=== PATIENT | female | born 2000 | race Caucasian/White ===

== ENCOUNTER → 2020-08-20 | Outpatient (CLI) | payer BC ==
[~2020-08-20] MED LIST: MIRALAX PA17 GM/Dose PO; OMNICEF 300MG300 MG PO; TORADOL 10MG TA10 MG PO; ZOFRAN 4MG T4 MG/TAB PO
== END ==
LOC: COL.RAD
DX: R30.0 Dysuria (principal); R31.9 Hematuria, unspecified; Z87.442 Personal history of urinary calculi

== ENCOUNTER 2021-04-03 04:22 | Emergency (ER) | payer BC ==
[2021-04-03 04:31] VITALS: TEMP 97.6
[2021-04-03 04:43] LABS: COLLECTION METHOD CLEAN CATCH
[2021-04-03 04:49] LABS: PH 6 (5-8); SQUAMOUS EPITHELIAL 0-2 /hpf; URINE APPEARANCE Clear; URINE BACTERIA None Seen /hpf; URINE BILIRUBIN Negative (NEGATIVE); URINE BLOOD 1+ (NEGATIVE); URINE COLOR Straw; URINE GLUCOSE Negative (NEGATIVE); URINE KETONE Negative (NEGATIVE); URINE LEUKOCYTE ESTERASE Negative (NEGATIVE); URINE NITRATE Negative (NEGATIVE); URINE PROTEIN(semi-quant) Negative (NEGATIVE); URINE RBC 0-2 /hpf; URINE UROBILINOGEN Negative (NEGATIVE)
[2021-04-03 04:54] LABS: BASO % 0.2 % (0.0-2.0); EOS # 0.1 K/mm3 (0.0-0.7); EOS % 1.6 % (0-4.0); GRAN # 5.2 K/mm3 (1.4-6.5); GRAN % 58.3 % (42.2-75.2); HEMOGLOBIN 12.2 g/dl (12.0-15.0); LYMPH # 2.8 K/mm3 (1.2-3.4); LYMPH % 31.5 % (20.0-51.0); MEAN CELL VOLUME 88 fl (80.0-95.0); MEAN CORPUSCULAR HEMOGLOBIN 30 pg (26.0-32.0); MEAN CORPUSCULAR HGB CONC 33 g/dl (33.0-37.0); MEAN PLATELET VOLUME 8.6 fl (7.4-10.4); MONO # 0.7 K/mm3 (0.1-0.6); MONO % 8.1 % (1.7-9.3); PLATELET COUNT 369 K/mm3 (130-400); RED BLOOD COUNT 4.14 M/mm3 (4.10-5.30); REDCELL DISTRIBUTION WIDTH-CV 12.2 % (11.5-14.5)
[2021-04-03 04:55] LABS: HEMATOCRIT 36.5 % (35.0-45.0)
[2021-04-03 05:29] LABS: ALBUMIN 3.5 gm/dL (3.5-5.0); BILIRUBIN,TOTAL 0.5 mg/dL (0.2-1.2); CALCIUM 9.2 mg/dL (8.4-10.2); CREATININE, serum 0.82 mg/dL (0.57-1.11); TOTAL PROTEIN 7.2 gm/dL (6.2-8.1)
[2021-04-03] MEDS ORDERED: TORADOL 10MG TA10 MG PO (05:51)
[2021-04-03] MEDS ORDERED: MIRALAX PA17 GM/Dose PO (05:51)
[2021-04-03 06:01] VITALS: BP 123/81; PULSE 77
== END 2021-04-03 06:01 | disposition home or self-care (01) ==
LOC: COL.ER 04:22
PROVIDERS: Emergency Medicine
DX: K59.00 Constipation, unspecified (principal); R31.29 Other microscopic hematuria; Z87.442 Personal history of urinary calculi; Z32.02 Encounter for pregnancy test, result negative; Z98.890 Other specified postprocedural states
CPT/HCPCS: J1885; J2270; J2405; J7030; Q9967

== ENCOUNTER 2021-04-05 15:50 | Emergency (ER) | payer BC ==
[~2021-04-05] VITALS: Ht 172.7 cm; Wt 61.4 kg
[~2021-04-05 15:50] MED LIST changes: -OMNICEF 300MG300 MG PO; -ZOFRAN 4MG T4 MG/TAB PO
[2021-04-05 16:21] VITALS: TEMP 98.4
[2021-04-05 16:40] LABS: COLLECTION METHOD CLEAN CATCH
[2021-04-05 16:50] LABS: MUCOUS Present /lpf; PH 5 (5-8); SQUAMOUS EPITHELIAL 20-50 /hpf; URINE APPEARANCE Hazy; URINE BACTERIA None Seen /hpf; URINE BILIRUBIN Negative (NEGATIVE); URINE BLOOD 2+ (NEGATIVE); URINE COLOR Amber; URINE GLUCOSE Negative (NEGATIVE); URINE KETONE 1+ (NEGATIVE); URINE LEUKOCYTE ESTERASE 2+ (NEGATIVE); URINE NITRATE Negative (NEGATIVE); URINE PROTEIN(semi-quant) Negative (NEGATIVE)
[2021-04-05 17:03] LABS: BASO % 0.3 % (0.0-2.0); EOS % 0.5 % (0-4.0); GRAN # 6.2 K/mm3 (1.4-6.5); GRAN % 78.9 % (42.2-75.2); HEMOGLOBIN 11.7 g/dl (12.0-15.0); LYMPH # 1.1 K/mm3 (1.2-3.4); LYMPH % 13.6 % (20.0-51.0); MEAN CELL VOLUME 87 fl (80.0-95.0); MEAN CORPUSCULAR HEMOGLOBIN 29 pg (26.0-32.0); MEAN CORPUSCULAR HGB CONC 34 g/dl (33.0-37.0); MEAN PLATELET VOLUME 8.7 fl (7.4-10.4); MONO # 0.5 K/mm3 (0.1-0.6); MONO % 6.4 % (1.7-9.3); PLATELET COUNT 341 K/mm3 (130-400); RED BLOOD COUNT 3.99 M/mm3 (4.10-5.30)
[2021-04-05 17:08] LABS: HEMATOCRIT 34.8 % (35.0-45.0)
[2021-04-05 17:22] LABS: ALBUMIN 3.3 gm/dL (3.5-5.0); BILIRUBIN,TOTAL 0.4 mg/dL (0.2-1.2); C-REACTIVE PROTEIN 5.46 mg/dL (0.00-0.50); CALCIUM 9.2 mg/dL (8.4-10.2); CREATININE, serum 0.74 mg/dL (0.57-1.11); POTASSIUM 4.1 mmol/L (3.5-4.5); TOTAL PROTEIN 7.2 gm/dL (6.2-8.1)
[2021-04-05] MEDS ORDERED: OMNICEF 300MG300 MG PO (17:34)
[2021-04-05] MEDS ORDERED: ZOFRAN 4MG T4 MG/TAB PO (17:35)
[2021-04-05 18:43] VITALS: BP 118/72; PULSE 79
== END 2021-04-05 18:45 | disposition home or self-care (01) ==
LOC: COL.ER 15:50
PROVIDERS: Nurse Practitioner Primary Care
DX: N12 Tubulo-interstitial nephritis, not specified as acute or chronic (principal); Z87.442 Personal history of urinary calculi; Z98.890 Other specified postprocedural states; Z32.02 Encounter for pregnancy test, result negative
CPT/HCPCS: J0696; J1885; J2405; J7030

== ENCOUNTER 2024-03-26 23:30 | Inpatient (IN) | payer BC ==
[~2024-03-26] VITALS: Ht 172.7 cm; Wt 76.4 kg
[~2024-03-26 23:30] MED LIST changes: +OMNICEF 300MG300 MG PO; +ZOFRAN 4MG T4 MG/TAB PO
--- NOTE | 2024-03-26 23:40 | NUR ---
PATIENT AMBULATORY TO UNIT WITH SIGNIFICANT OTHER. PATIENT STATES SROM AT 2240 CLEAR FLUID. CONTRACTIONS STARTED AROUND 2310 EVERY 3 MINUTES. DENIES VAGINAL BLEEDING. SVE NOTED.
[2024-03-26] MEDS ORDERED: LR 1,000 ML IV PRN (23:45)
[2024-03-27] VITALS (55 sets, daily range): BP systolic 96–133; BP diastolic 51–74; PULSE 66–122; TEMP 97.7–98.4
[2024-03-27] MEDS ORDERED: LR & Oxytocin 500 ML IV SCH (00:30)
[2024-03-27] MEDS ORDERED: LR 1,000 ML IV PRN (00:30)
[2024-03-27] MEDS ORDERED: LR 1,000 ML IV SCH (00:30)
[2024-03-27 00:33] LABS: BASO % 0.1 % (0.0-2.0); EOS # 0.1 K/mm3 (0.0-0.7); EOS % 0.8 % (0.0-4.0); GRAN # 10.5 K/mm3 (1.4-6.5); GRAN % 74.8 % (42.2-75.2); HEMATOCRIT 33.5 % (37.0-47.0); HEMOGLOBIN 11.4 g/dl (12.5-16.0); LYMPH # 2.3 K/mm3 (1.2-3.4); LYMPH % 16.7 % (20.0-51.0); MEAN CELL VOLUME 87 fl (80.0-100.0); MEAN CORPUSCULAR HEMOGLOBIN 30 pg (27-31); MEAN CORPUSCULAR HGB CONC 34 g/dl (33.0-37.0); MEAN PLATELET VOLUME 10.3 fl (7.4-10.4); MONO % 6.9 % (1.7-9.3); PLATELET COUNT 227 K/mm3 (130-400); RED BLOOD COUNT 3.87 M/mm3 (4.10-5.30); REDCELL DISTRIBUTION WIDTH-CV 12.7 % (11.5-14.5)
[2024-03-27] MEDS ORDERED: ROPivacaine PF 0.2% 200 ML IV ONE (01:02)
[2024-03-27] MEDS ORDERED: Naloxone 0.4 MG/ML VIAL IV PRN ×2 (01:30→13:15)
[2024-03-27] MEDS ORDERED: diphenhydrAMINE 25 MG CAP PO PRN (01:30)
[2024-03-27] MEDS ORDERED: diphenhydrAMINE 50 MG/ML 1 ML VIAL IV PRN (01:30)
[2024-03-27] MEDS ORDERED: Ondansetron 4 MG/2 ML VIAL IV PRN (01:30)
[2024-03-27] MEDS ORDERED: ePHEDrine 50 MG/10 ML VIAL IV PRN (01:30)
--- NOTE | 2024-03-27 01:44 | NUR ---
0045- DAMIÁN LAL NOTIFIED OF PATIENT REQUESTING EPIDURAL. FLUID BOLUS STARTED PER PROTOCOL. 0109- PATIENT SITTING ON EDGE OF BED. DAMIÁN LAL AT BEDSIDE EXPLAINING PROCEDURE. PULSE OX APPLIED. DIFFICULTY TRACING HEART RATE DUE TO MATERNAL POSITIONING. 0113- SINGLE SHOT ADMINISTERED BY CLINIC LPN. 0120- PATIENT TOLERATED PROCEDURE WELL AND REPOSITIONED. PLAN OF CARE EXPLAINED TO PATIENT AND SPOUSE. QUESTIONS INVITED AND ANSWERED.
[2024-03-27] MEDS ORDERED: Acetaminophen 500 MG TAB PO PRN (04:30)
--- NOTE | 2024-03-27 07:45 | NUR ---
[facility] RECURRENT EARLY DECELERATIONS ON EFM, THIS RN RAISES PT HEAD OF BED, ADMINISTERS DOSE OF EPHEDRINE DUE TO LOW PT BLOOD PRESSURE, AND STARTS FLUID BOLUS.
[2024-03-27] MEDS ORDERED: Phenylephrine/Mineral Oil/Petrolatum 57 GM TUBE RC PRN (13:15)
[2024-03-27] MEDS ORDERED: Acetaminophen 500 MG TAB PO SCH (13:15)
[2024-03-27] MEDS ORDERED: Tdap Vaccine 0.5 ML SYRINGE IM SCH (13:15)
[2024-03-27] MEDS ORDERED: Loratadine 10 MG TAB PO PRN (13:15)
[2024-03-27] MEDS ORDERED: Mag/Al Hydrox/Simeth Susp 30 ML CUP PO PRN (13:15)
[2024-03-27] MEDS ORDERED: Ibuprofen 800 MG TAB PO SCH (13:15)
[2024-03-27] MEDS ORDERED: Witch Hazel 50% Pads Bulk TUB TP PRN (13:15)
[2024-03-27] MEDS ORDERED: Magnes Hydrox (MOM) 80 MG/ML 30 ML CUP PO PRN (13:15)
[2024-03-27] MEDS ORDERED: Measles/Mumps/Rubella Virus Vaccine Live w Diluent 0.5 ML VIAL SQ SCH (13:15)
--- NOTE | 2024-03-27 13:23 | NUR ---
1145 SVE 10/100/+1 PER THIS RN. , CHARGE NURSE, AND NURSERY NURSE NOTIFIED OF PT COMPLETE SVE. ROOM SET FOR DELIVERY, PT EDUCATED ON PUSHING. PT SPOUSE AND PT MOTHER SUPPORTIVE AT BEDSIDE. 1158 PT BEGINS TO PUSH. PT VS STABLE, EFM CAT 1, MODERATE AMOUNT OF BLOODY SHOW, PT AWAKE AND ALERT X3. 1218 AT PT BEDSIDE, CHARGE NURSE AND NURSERY NURSE AT BEDSIDE. PT VS STABLE, BASELINE 140'S, MODERATE VARIABILITY, RECURRENT LATE DECELERATIONS NOT PROLONGED. PT TOLERATING PUSHING. PT SPOUSE AND PT MOTHER SUPPORTIVE AT BEDSIDE. 1227 OF VIABLE FEMALE INFANT PER . DRIED AND PLACED ON MATERNAL CHEST, CORD CLAMPED AND CUT BY FATHER OF BABY/PT SPOUSE. INFANT CARE ASSUMED OVER TO NURSERY NURSE. 1232 OF PLACENTA, VAGINAL AND LEFT LABIAL TEAR REPAIR BEGUN PER . PT VS STABLE, FUNDUS FIRM DEVIATED TO THE RIGHT PER ASSESSMENT, SMALL AMOUNT OF LOCHIA, CLOT EXPELLED WITH SCANT LOCHIA AFTER. PT AWAKE AND ALERT X3, DENIES PAIN, NAUSEA, AND DIZZINESS. 1245 PT ROOM CLEANED AFTER DELIVERY, SPOUSE SUPPORTIVE AT BEDSIDE. PT VS STABLE, FUNDUS FIRM AT UMBILICUS DEVIATED TO THE RIGHT, SCANT LOCHIA, NO CLOTS, AWAKE AND ALERT X3. PT DENIES PAIN AT THIS TIME. INFANT ON MATERNAL CHEST.
[2024-03-27] MEDS ORDERED: Sennosides/Docusate 8.6-50 MG TAB PO SCH (17:00)
[2024-03-27] MEDS ORDERED: traZODone 50 MG TAB PO PRN (21:00)
[2024-03-28 00:30] VITALS: BP 106/57; PULSE 68; TEMP 98
[2024-03-28 04:00] VITALS: BP 105/61; PULSE 70; TEMP 97.8
[2024-03-28 07:00] VITALS: BP 108/60; PULSE 67; TEMP 98.2
[2024-03-28] MEDS ORDERED: IBU800 M1 PO (08:46)
--- NOTE | 2024-03-28 09:47 | NUR ---
Initial visit; Mom (Indisposed), Dad holding baby girl. Systems Analyst offered congratulations and God's blessings to Dad and Mom. Systems Analyst thanked family for choosing [facility].
== END 2024-03-28 14:33 | disposition home or self-care (01) | DRG 807 ==
LOC: LDRO 23:30 → LDR 03-27 00:19 → OB 03-27 16:20
PROVIDERS: Obstetrics & Gynecology; ADMIT Student in an Organized Health Care Education/Training Program
PROC: 10E0XZZ Delivery of Products of Conception, External Approach (ICD-10-PCS; principal; 2024-03-27)
PROC: 0KQM0ZZ Repair Perineum Muscle, Open Approach (ICD-10-PCS; 2024-03-27)
DX: O70.0 First degree perineal laceration during delivery (principal); Z37.0 Single live birth; Z3A.38 38 weeks gestation of pregnancy
CPT/HCPCS: J2405; J2795; J7120